=== PATIENT | male | born 1960 | race Caucasian/White ===

== ENCOUNTER 2019-05-29 22:27 | Emergency (ER) | payer MEDICARE, OTHER ==
[2019-05-29 22:35] VITALS: RESP 18; TEMP 98.3
--- NOTE | 2019-05-29 23:10 | ED ---
Headache HPI - General Chief Complaint: Headache Stated Complaint: Headache Time Seen by Provider: 05/29/19 22:50 Source: patient, RN notes reviewed Mode of arrival: ambulatory Limitations: no limitations - History of Present Illness Initial Comments: This a 59-year-old male presents emergency Department with chief complaint of left-sided headache. Patient states she's had progressive worsening headaches for last 2 weeks and which she seen his primary care physician and was given a Medrol Dosepak is a follow-up was related to a pinched nerve. Patient states that he has had cervical fusion in the past. Patient states that today the pain is the point where it and tolerable. He states it started pain in the left side of his head. He states it does not radiate to the right side. He states department starts in the occipital region and radiates to his right thigh. Patient states that he has no blurred vision. Patient states it makes it roberto nful to open his left eye. Patient denies any pain with ocular movements denies fever, chills. Patient denies any focal weakness of the upper or lower extremities. He has no complaints chest pain or shortness breath denies nausea vomiting. Does complain of photophobia. Patient has a history of migraines and states feels different. He has an appointment with neurology in 2 weeks. - Related Data Home Medications Medication Instructions Recorded Confirmed Diclofenac Sodium [Voltaren] 75 mg PO BID 05/29/19 05/29/19 Gabapentin 600 mg PO TID 05/29/19 05/29/19 methylPREDNISolone [Medrol Dose See Taper PO DIRECTED 05/29/19 05/29/19 Pack] tiZANidine [Zanaflex] 4 mg PO TID 05/29/19 05/29/19 Previous Rx's Medication Instructions Recorded carBAMazepine [TEGretol] 100 mg PO Q12H #20 tablet 05/30/19 Allergies Allergy/AdvReac Type Severity Reaction Status Date / Time atropine Allergy Unknown Verified 05/29/19 22:42 Childhood Penicillins Allergy Rash/Hives Verified 05/29/19 22:42 Review of Systems ROS Statement: Those systems with pertinent positive or pertinent negative responses have been documented in the HPI. ROS Other: All systems not noted in ROS Statement are negative. Past Medical History Past Medical History: No Reported History History of Any Multi-Drug Resistant Organisms: None Reported Past Surgical History: No Surgical Hx Reported Additional Past Surgical History / Comment(s): back and neck fusion Past Psychological History: No Psychological Hx Reported Smoking Status: Never smoker Past Alcohol Use History: None Reported Past Drug Use History: None Reported General Exam Limitations: no limitations General appearance: alert, in no apparent distress Head exam: Present: atraumatic, normocephalic, normal inspection Eye exam: Present: normal appearance, PERRL, EOMI. Absent: scleral icterus, conjunctival injection, periorbital swelling Pupils: Present: normal accommodation ENT exam: Present: normal exam, normal oropharynx, mucous membranes moist, TM's normal bilaterally, normal external ear exam Neck exam: Present: normal inspection, full ROM. Absent: tenderness, meningismus, lymphadenopathy Respiratory exam: Present: normal lung sounds bilaterally, prolonged expiratory. Absent: respiratory distress, wheezes, rales, rhonchi, stridor, decreased breath sounds Cardiovascular Exam: Present: regular rate, normal rhythm, normal heart sounds. Absent: systolic murmur, diastolic murmur, rubs, gallop, clicks Neurological exam: Present: alert, oriented X3, CN II-XII intact, reflexes nor mal, other (Finger to nose intact bilaterally without over shooting). Absent: motor sensory deficit Skin exam: Present: warm, dry, intact, normal color. Absent: rash Course Vital Signs 05/29/19 22:29 Temperature 98.3 F Pulse Rate 81 Respiratory 18 Rate Blood Pressure 154/84 O2 Sat by Pulse 98 Oximetry Medical Decision Making - Medical Decision Making 59-year-old male present emergency from for left-sided headache. Patient's headache starts occipital region and radiates to his left orbital region. He has no focal weakness he has no change in vision. CT is obtained which is negative for acute intracranial process. Laboratory is unremarkable. Patient has normal neuro exam. Symptoms are consistent with occipital neuralgia. Patient will be treated with Tegretol at this time. Patient has appointment with urology. Patient was given strict return parameters. - Lab Data Result diagrams: 05/29/19 22:55 05/29/19 22:55 Lab Results 05/29/19 05/29/19 Range/Units 22:55 22:55 WBC 10.9 H (3.8-10.6) k/uL RBC 4.52 (4.30-5.90) m/uL Hgb 14.6 (13.0-17.5) gm/dL Hct 45.3 (39.0-53.0) % MCV 100.2 H (80.0-100.0) fL MCH 32.3 (25.0-35.0) pg MCHC 32.2 (31.0-37.0) g/dL RDW 14.4 (11.5-15.5) % Plt Count 242 (150-450) k/uL Neutrophils % 80 % Lymphocytes % 12 % Monocytes % 6 % Eosinophils % 1 % Basophils % 0 % Neutrophils # 8.7 H (1.3-7.7) k/uL Lymphocytes # 1.4 (1.0-4.8) k/uL Monocytes # 0.6 (0-1.0) k/uL Eosinophils # 0.1 (0-0.7) k/uL Basophils # 0.0 (0-0.2) k/uL Macrocytosis Slight Sodium 141 (137-145) mmol/L Potassium 4.9 (3.5-5.1) mmol/L Chloride 108 H (98-107) mmol/L Carbon Dioxide 22 (22-30) mmol/L Anion Gap 11 mmol/L BUN 28 H (9-20) mg/dL Creatinine 0.99 (0.66-1.25) mg/dL Est GFR (CKD-EPI)AfAm >90 (>60 ml/min/1.73 sqM) Est GFR (CKD-EPI)NonAf 82 (>60 ml/min/1.73 sqM) Glucose 113 H (74-99) mg/dL Calcium 9.4 (8.4-10.2) mg/dL Total Bilirubin 0.3 (0.2-1.3) mg/dL AST 23 (17-59) U/L ALT 24 (21-72) U/L Alkaline Phosphatase 82 (38-126) U/L Total Protein 7.2 (6.3-8.2) g/dL Albumin 4.4 (3.5-5.0) g/dL Disposition Clinical Impression: Occipital neuralgia of left side Disposition: HOME SELF-CARE Condition: Stable Instructions (If sedation given, give patient instructions): Acute Headache (ED) Additional Instructions: Please return to the Emergency Department if symptoms worsen or any other concerns. Prescriptions: carBAMazepine [TEGretol] 100 mg PO Q12H #20 tablet Is patient prescribed a controlled substance at d/c from ED?: No Referrals: Nonstaff,Physician [Primary Care Provider] - 1-2 days Time of Disposition: 00:36
[2019-05-29 23:16] LABS: Basophils % (A) 0 %; Eosinophils # (A) 0.1 k/uL (0-0.7); Eosinophils % (A) 1 %; HCT 45.3 % (39.0-53.0); HGB 14.6 gm/dL (13.0-17.5); Lymphocytes # (A) 1.4 k/uL (1.0-4.8); Lymphocytes % (A) 12 %; MCH 32.3 pg (25.0-35.0); MCHC 32.2 g/dL (31.0-37.0); MCV 100.2 fL (80.0-100.0); Macrocytosis Slight; Mean Platelet Volume 8.1; Monocytes # (A) 0.6 k/uL (0-1.0); Monocytes % (A) 6 %; Neutrophils # (A) 8.7 k/uL (1.3-7.7); Neutrophils % (A) 80 %; Platelet Count 242 k/uL (150-450); RBC 4.52 m/uL (4.30-5.90); RDW 14.4 % (11.5-15.5); WBC 10.9 k/uL (3.8-10.6)
--- NOTE | 2019-05-29 23:20 | CT ---
EXAM: CT Head Without Intravenous Contrast CLINICAL HISTORY: ITS.REASON CT Reason: pain TECHNIQUE: Axial computed tomography images of the head/brain without intravenous contrast. This CT exam was performed using one or more of the following dose reduction techniques: automated exposure control, adjustment of the mA and/or kV according to patient size, and/or use of iterative reconstruction technique. COMPARISON: No relevant prior studies available. FINDINGS: Brain: No hemorrhage. No edema. Ventricles: Unremarkable. No ventriculomegaly. Bones/joints: No acute fracture. Soft tissues: Unremarkable. Sinuses: No fluid levels. Mastoid air cells: Unremarkable as visualized. No mastoid effusion. IMPRESSION: No acute intracranial findings
[2019-05-29 23:24] LABS: ALT 24 U/L (21-72); AST 23 U/L (17-59); African American GFR (CKD) >90 (>60 ml/min/1.73 sqM); Albumin 4.4 g/dL (3.5-5.0); Alkaline Phosphatase 82 U/L (38-126); Anion Gap 11 mmol/L; Blood Urea Nitrogen 28 mg/dL (9-20); Calcium 9.4 mg/dL (8.4-10.2); Carbon Dioxide 22 mmol/L (22-30); Chloride 108 mmol/L (98-107); Glucose 113 mg/dL (74-99); Potassium 4.9 mmol/L (3.5-5.1); Sodium 141 mmol/L (137-145); Total Bilirubin 0.3 mg/dL (0.2-1.3); Total Protein 7.2 g/dL (6.3-8.2)
[2019-05-29] MEDS ORDERED: diphenhydrAMINE 50 MG/ML 1 ML VIAL IVP STA (23:28)
[2019-05-29] MEDS ORDERED: METOCLOPRAMIDE 5 MG/ML 2 ML VIAL IVP STA (23:28)
[2019-05-29] MEDS ORDERED: KETOROLAC 30 MG/ML 1 ML VIAL IVP STA (23:28)
[2019-05-29] MEDS ORDERED: DEXAMETHASONE SOD PHOSPHATE 10 MG/ML 1 ML VIAL IV STA (23:28)
[2019-05-30] MEDS ORDERED: MORPHINE SULFATE 4 MG/ML SYRINGE IVP STA (00:23)
[2019-05-30] MEDS ORDERED: ONDANSETRON 4 MG/2 ML VIAL IVP STA (00:23)
[2019-05-30 00:36] VITALS: BP 145/87; PULSE 79
[2019-05-30] MEDS ORDERED: ACET/COD 300 MG/30 MG STARTER PACK 6 TAB BTL PO STA (00:55)
== END 2019-05-30 01:29 | disposition home or self-care (01) ==
LOC: EC 22:27
DX: M54.81 Occipital neuralgia (principal); Z79.899 Other long term (current) drug therapy; Z88.0 Allergy status to penicillin; Z88.8 Allergy status to other drugs, medicaments and biological substances; Z98.1 Arthrodesis status
CPT/HCPCS: 99284 ×2; 96374 ×2; 96375 ×7; 36415; 80053; 85025; 70450; J2270; J1200; J1100; J2765; J2405; J1885

== ENCOUNTER → 2021-01-23 | Outpatient (CLI) | payer MEDICARE, OTHER ==
[2021-01-23 09:14] LABS: C Reactive Protein <5.0 mg/L (<10.0)
--- NOTE | 2021-01-23 09:21 | CT ---
EXAMINATION TYPE: CT iac wo/w con DATE OF EXAM: 01/23/2021 COMPARISON: None HISTORY: Lt ear infection CT DLP: 300 mGycm Automated exposure control for dose reduction was used. CONTRAST: CT scan of the IACs is performed without and with IV Contrast, patient injected with 100 mL of Isovue 300. FINDINGS: The external auditory canals are patent bilaterally. Mastoid air cells show no evidence of abnormal opacification bilaterally. The middle ear ossicles are symmetric and unremarkable. There is no evidence of suspicious surrounding soft tissue density to suggest cholesteatoma. The scutum is preserved bilaterally. The cochlea and the semicircular canals are symmetric and unremarkable. Ves tibular aqueduct and internal carotid canal appear unremarkable. Temporomandibular joints are mainta ined bilaterally. IMPRESSION: No significant abnormality seen to account for patient's symptoms.
[2021-01-23 19:24] LABS: Cardiolipin Ab IgG Interp NEGATIVE (NEGATIVE); Cardiolipin Ab IgM Interp NEGATIVE (NEGATIVE); Cardiolipin IgA Antibody <0.5 U/mL; Cardiolipin IgM Antibody 4.8 U/mL
[2021-01-23 23:46] LABS: Rheumatoid Factor, Qnt <4 IU/mL (0-15)
== END ==
LOC: RADCTMAIN 07:40
PROVIDERS: ATTEND Otolaryngology Otology & Neurotology
DX: H61.0 Chondritis and perichondritis of external ear (principal); H90.3 Sensorineural hearing loss, bilateral; Q18.1 Preauricular sinus and cyst
CPT/HCPCS: 86255; 85652; 82595; 85730; 86140; 86431; 85613; 86038; 86039; 86147; 70482; 36415; Q9967